=== PATIENT | female | born 1960 | race African-American/Black ===

== ENCOUNTER 2024-10-20 18:51 | Observation (INO) ==
--- NOTE | 2024-10-20 19:12 | Emergency Department Note ---
HPI - General Adult General Chief complaint: Recheck/Abnormal Lab/Rx Stated complaint: poss high blood sugar Source: patient Mode of arrival: walk-in History of Present Illness HPI narrative: The patient is 64 years old female with history of diabetes mellitus, recent stroke who presents to the ED with complaint of high blood glucose. On evaluation glucometer reads high. Patient states that she has been feeling bad and she feels so dehydrated.Patient states that she is did not get her insulin today.Denies chest pain, abdominal pain, nausea or vomiting. MD complaint: Hyperglycemia Onset (ago): hour(s) Location: Reports mouth Associated symptoms: Reports malaise and weakness Treatments prior to arrival: Reports none Related Data Allergies Allergy/AdvReac Type Severity Reaction Status Date / Time No Known Drug Allergies Allergy Verified 10/20/24 19:03 Review of Systems Status of ROS 10 or more systems reviewed and unremark able except as noted in history and below Constitutional Reports: fatigue; Denies: fever, chills, change in weight or malaise Eyes Reports: change in vision and blurry vision; Denies: blind spots, light sensitivity or eye discomfort Ears, nose, mouth, and throat Denies: throat pain, neck pain, throat swelling, difficulty swallowing, hoarseness or mouth pain Cardiovascular Denies: chest pain, palpitations, edema, swelling of feet/ankles or lightheadedness Respiratory Denies: shortness of breath, cough, wheezing, stridor, pain on inspiration or change in phlegm color Gastrointestinal Denies: abdominal pain, nausea, vomiting, coffee grounds in vomit, heartburn or diarrhea Genitourinary Denies: painful urination, urinary frequency, urinary urgency, urinary incontinence or blood in urine Musculoskeletal Denies: back pain, neck pain, extremity pain, extremity swelling, joint pain or limited range of motion Integumentary/Breast Denies: rash, itching, redness, skin pain, skin tenderness or skin swelling Neurological Denies: headache, numbness in extremities or weakness in extremities Psychiatric Denies: anxiety, mood swings, panic attacks, change in sleep pattern or hopelessness Endocrine Denies: excessive urination, excessive thirst, fatigue or cold intolerance Hematologic/Lymphatic Denies: easy bruising or easy bleeding Allergic/Immunologic Denies: hives, throat swelling, tongue swelling, facial swelling or wheezing [facility] Medical History (Updated 10/20/24 @ 19:05 by Elizabeth Sevilla RN) CVA (cerebral vascular accident) Diabetes Surgical History (Updated 10/20/24 @ 19:05 by Elizabeth Sevilla RN) History of hysterectomy History of cataract surgery Social History Smoking status: never smoker Feel stressed/tense/nervous/anxious/difficulty sleeping: not at all Due to disability, difficulty making decisions: No Exam Constitutional: normal general appearance, no apparent distress, average body habitus and no limitations Vital Signs - 24 hr 10/20/24 18:51 Temperature 98.2 F Pulse Rate 72 Respiratory Rate 18 Blood Pressure 115/72 Pulse Oximetry 95 HENMT: normocephalic, head/scalp atraumatic, hearing grossly normal bilaterally and external ears normal Eyes: PERRL, EOMs intact bilaterally, conjunctivae normal and no scleral icterus Neck/C-Spine: visual inspection normal, trachea midline and cervical spine nontender Lymph: no lymphadenopathy noted and no lymphedema noted Chest: inspection of chest normal and palpation of chest normal Respiratory: breath sounds equal bilaterally and normal respiratory effort Cardiovascular: normal heart rate noted, regular rhythm noted, no gallop and no rub Gastrointestinal: abdomen normal to inspection, abdomen soft to palpation and nontender to palpation Genitourinary: no CVA tenderness, bladder normal to palpation and external appearance normal Back/Pelvis: spine normal to inspection, no thoracic spine tenderness and no lumbar spine tenderness Extremities: normal to inspection, normal to palpation, no tenderness and full ROM 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 Blood glucose is noted to be elevated at 1200. DKA is ruled out Patient has no anion gap or ketones. I have treated the patient with 2 days normal saline with significant improvement patient has also been treated with 20 units of insulin. Blood glucose has dropped from 1231 to854. I have discussed this case with Dr. Hernandez who is agreeable for admission. Diagnosis: Hyperglycemia Acute on chronic kidney disease Hypokalemia Hypocalcemia Vital Signs Vital signs: Vital Signs Temperature 98.2 F 10/20/24 18:51 Pulse Rate 72 10/20/24 18:51 Respiratory Rate 18 10/20/24 18:51 Blood Pressure 115/72 10/20/24 18:51 Pulse Oximetry 95 10/20/24 18:51 Temperature 98.2 F 10/20/24 18:51 Pulse Rate 72 10/20/24 18:51 Respiratory Rate 18 10/20/24 18:51 Blood Pressure 115/72 10/20/24 18:51 Pulse Oximetry 95 10/20/24 18:51 Medical Decision Making Lab Data Labs: Lab Results 10/20/24 10/20/24 10/20/24 Range/Units 19:09 19:09 19:21 WBC 9.0 (4.3-9.3) K/uL RBC 4.2 (4.00-5.50) M/uL Hgb 11.7 L (12.5-15.8) gm/dL Hct 38.8 (35.9-46.7) % MCV 93.5 (81.0-93.7) fl MCH 28.1 (27.6-32.2) pg MCHC 30.1 L (33.1-35.3) g/dl RDW 14.5 H (11.4-14.2) % Plt Count 322 (152-353) K/uL MPV 9.4 (6.9-10.8) fl Gran % 59.2 (47.8-71.3) % Lymph % (Auto) 34.5 (20.0-43.0) % [place] % (Auto) 4.9 (3.6-9.8) % Eos % (Auto) 0.8 (0.4-2.8) % Baso % (Auto) 0.6 (0.1-0.85) Lymph # (Auto) 3.1 (1.1-3.1) [place] # (Auto) 0.4 L (1.1-3.1) Eos # (Auto) 0.1 (0.0-0.2) Baso # (Auto) 0.1 (0.0-0.1) Absolute Gran (auto) 5.3 (2.3-6.0) ABG pH 7.24 L* (7.35-7.45) ABG pCO2 52 H (35-45) mmHg ABG pO2 62 85 (60-100) mmHg ABG HCO3 22.3 (22-26) mmo1/L ABG Total CO2 23.9 mmo1/L ABG O2 Saturation 87 L* (92-100) % ABG Base Excess -5.4 L (-2-2) mmo1/L A-a O2 Gradient 23 mmHg Respiratory Index 0.4 (0-1) FiO2 21.0 % Sodium 115 L* (136-145) mmol/L Potassium 4.7 (3.6-5.2) mmol/L Chloride 83.0 L (98-107) mmol/L Carbon Dioxide 21 (21-32) mmol/L Anion Gap 11.0 (4-14) mEq/L BUN 46 H (7-18) mg/dL Creatinine 2.3 H (0.6-1.3) mg/dL Estimated GFR 23.5 (>59.9) Glucose 1231 H* (70-110) mg/dL Calcium 8.2 L (8.5-10.1) mg/dL Total Bilirubin 0.32 (0.0-1.0) mg/dL AST 6 L (15-37) U/L ALT 15 L (30-65) U/L Alkaline Phosphatase 308 H (50-136) U/L Total Protein 7.5 (6.4-8.2) g/dL Albumin 3.2 L (3.4-5.0) g/dL Discharge Plan Discharge Patient Disposition: Admitted As Observation Condition: Improved Chief Complaint: Recheck/Abnormal Lab/Rx Clinical Impression: Hyperglycemia, Acute kidney injury superimposed on chronic kidney disease, Hypocalcemia, Pseudohyponatremia, Hypokalemia Print Language: [place] Referrals: Adriel Rodriguez [Other] Time of Disposition: 22:20
[2024-10-20 19:38] LABS: Basophils #(Absolute) Auto 0.1 (0.0-0.1); Basophils%(Percent) Auto 0.6 (0.1-0.85); Eosinophils#(Absolute)Auto 0.1 (0.0-0.2); Eosinophils%(Percent) Auto 0.8 % (0.4-2.8); Granulocytes % - Auto 59.2 % (47.8-71.3); Granulocytes#(Absolute)- Auto 5.3 (2.3-6.0); Hematocrit 38.8 % (35.9-46.7); Mean Corpuscular Volume 93.5 fl (81.0-93.7); Monocytes #(Absolute)- Auto 0.4 (1.1-3.1); Monocytes %(Percent)- Auto 4.9 % (3.6-9.8); Platelet Count 322 K/uL (152-353)
[2024-10-20 19:47] LABS: Potassium 4.7 mmol/L (3.6-5.2)
[2024-10-20 20:08] LABS: PO2 ABG 62 mmHg (60-100)
[2024-10-20 20:14] LABS: Base Excess ABG -5.4 mmo1/L (-2-2); Oxygen Saturation ABG 87 % (92-100); PCO2 ABG 52 mmHg (35-45); pH ABG 7.24 (7.35-7.45)
[2024-10-20] MEDS ORDERED: 0.9 % SODIUM CHLORIDE 1000 ML 1,000 ML IV ONE (20:14)
[2024-10-20] MEDS: 0.9 % SODIUM CHLORIDE 1000 ML 1,000 ML IV ONE ×2 (20:22→20:56)
[2024-10-20 20:49] LABS: Urine Appearance CLEAR (CLEAR); Urine Blood NEGATIVE (NEG - TRACE); Urine Color PALE YELLOW (STRAW/YELL.); Urine Urobilinogen Normal (NORMAL)
[2024-10-20 21:46] LABS: Potassium 3.5 mmol/L (3.6-5.2)
[2024-10-20] MEDS: 0.9 % SODIUM CHLORIDE 1000 ML 1,000 ML IV SCH ×2 (22:18)
[2024-10-20] MEDS ORDERED: ACETAMINOPHEN 500 MG TABLET PO PRN (22:21)
[2024-10-20 23:14] LABS: Potassium 3.3 mmol/L (3.6-5.2)
[2024-10-21] MEDS: PREGABALIN 75 MG CAPSULE PO ONE (03:02)
[2024-10-21 03:58] VITALS: TEMP 97.9
[2024-10-21 07:12] LABS: Basophils #(Absolute) Auto 0.1 (0.0-0.1); Basophils%(Percent) Auto 0.8 (0.1-0.85); Eosinophils#(Absolute)Auto 0.4 (0.0-0.2); Eosinophils%(Percent) Auto 4.2 % (0.4-2.8); Granulocytes#(Absolute)- Auto 3.9 (2.3-6.0); Hematocrit 30.2 % (35.9-46.7); Mean Corpuscular Volume 84.7 fl (81.0-93.7); Monocytes #(Absolute)- Auto 0.5 (1.1-3.1); Platelet Count 277 K/uL (152-353); White Blood Count 9.1 K/uL (4.3-9.3)
[2024-10-21] MEDS: PANTOPRAZOLE SODIUM 40 MG VIAL IVP SCH (08:17)
[2024-10-21] MEDS: ENOXAPARIN SODIUM 40 MG/0.4 ML SYRINGE SUBQ SCH (08:17)
[2024-10-21 08:21] VITALS: BP 127/82; PULSE 91; RESP 19
--- NOTE | 2024-10-21 10:31 | Internal Medicine H&P ---
Internal Medicine - H&P: HPI History of Present Illness Chief complaint: poss high blood sugar Review of Systems Status of ROS 10 or more systems reviewed and unremark able except as noted in history and below Constitutional Denies: fever, chills, change in weight, fatigue or malaise Eyes Reports: change in vision and blurry vision; Denies: blind spots, light sensitivity or eye discomfort Ears, nose, mouth, and throat Denies: throat pain, neck pain, throat swelling, difficulty swallowing, hoarseness or mouth pain Cardiovascular Denies: chest pain, palpitations, edema, swelling of feet/ankles, lightheadedness or shortness of breath with exertion Respiratory Denies: shortness of breath, cough, wheezing, stridor, pain on inspiration or change in phlegm color Gastrointestinal Denies: abdominal pain, nausea, vomiting, coffee grounds in vomit, heartburn, diarrhea or difficulty swallowing Genitourinary Denies: painful urination, urinary frequency, urinary urgency, urinary incontinence or blood in urine Musculoskeletal Denies: back pain, neck pain, extremity pain, extremity swelling, joint pain or limited range of motion Integumentary/Breast Denies: rash, itching, redness, skin pain, skin tenderness or skin swelling Neurological Denies: headache, numbness in extremities or weakness in extremities Psychiatric Denies: anxiety, mood swings, panic attacks, change in sleep pattern or hopelessness Endocrine Denies: excessive urination, excessive thirst, fatigue or cold intolerance Hematologic/Lymphatic Denies: easy bruising or easy bleeding Allergic/Immunologic Denies: hives, throat swelling, tongue swelling, facial swelling or wheezing PFSH [facility] Medical History (Updated 10/20/24 @ 19:05 by Elizabeth Sevilla RN) CVA (cerebral vascular accident) Diabetes Surgical History (Updated 10/20/24 @ 19:05 by Elizabeth Sevilla RN) History of hysterectomy History of cataract surgery Social History Smoking status: never smoker Problems where you live: no known problems Highest level of school completed/degree received: College Feel stressed/tense/nervous/anxious/difficulty sleeping: not at all Due to disability, difficulty making decisions: No Meds Home Medications and Allergies Home Medications Medication Instructions Recorded Confirmed Type carvedilol 6.25 mg tablet 6.25 mg PO BID 10/21/24 10/21/24 History ciclopirox 0.77 % topical cream applic topical BID 10/21/24 History duloxetine 30 mg capsule,delayed 30 mg PO BEDTIME 10/21/24 10/21/24 History release empagliflozin 25 mg tablet 25 mg PO DAILY 10/21/24 10/21/24 History (Jardiance) insulin NPH-regular 70-30 U-100 See Rx Instructions subcut .COMPLEX 10/21/24 10/21/24 History insulin 100 unit/mL subcutaneous pen (Humulin 70/30 U-100 Rebekah) lorazepam 0.5 mg tablet 0.5 mg PO BID PRN anxiety 10/21/24 10/21/24 History metformin 1,000 mg tablet 1,000 mg PO BIDWM 10/21/24 10/21/24 History pregabalin 150 mg capsule (Lyrica) 150 mg PO TID 10/21/24 10/21/24 History ropinirole 1 mg tablet 1 mg PO BEDTIME 10/21/24 10/21/24 History rosuvastatin 10 mg tablet 10 mg PO DAILY 10/21/24 10/21/24 History sitagliptin phosphate 100 mg 100 mg PO DAILY 10/21/24 10/21/24 History tablet (Januvia) tramadol 50 mg tablet 50 mg PO TID 10/21/24 10/21/24 History trazodone 50 mg tablet 50 mg PO BEDTIME 10/21/24 10/21/24 History zolpidem 10 mg tablet 10 mg PO BEDTIME PRN sleep 10/21/24 10/21/24 History Allergies Allergy/AdvReac Type Severity Reaction Status Date / Time No Known Drug Allergies Allergy Verified 10/20/24 19:03 Exam Constitutional: Vital Signs - 24 hr 10/20/24 18:51 10/20/24 20:49 10/20/24 21:07 Temperature 98.2 F Pulse Rate 72 76 92 H Pulse Rate [Right Radial] Respiratory Rate 18 17 Blood Pressure 115/72 123/66 123/66 Blood Pressure [Ri ght Arm] Pulse Oximetry 95 97 93 L Oxygen Delivery Nc thod Room Air Room Air 10/20/24 21:50 10/20/24 22:22 10/20/24 22:50 Temperature 98.1 F Pulse Rate 92 H 93 H Pulse Rate [Right Radial] 95 H Respiratory Rate 18 18 19 Blood Pressure 110/65 107/71 Blood Pressure [Ri ght Arm] 100/53 Pulse Oximetry 96 97 93 L Oxygen Delivery Me thod Room Air 10/20/24 23:19 10/20/24 23:51 10/21/24 03:58 Temperature 98.1 F 98.1 F 97.9 F Pulse Rate Pulse Rate [Right Radial] 95 H 95 H 94 H Respiratory Rate 18 18 17 Blood Pressure Blood Pressure [Ri ght Arm] 100/53 100/53 105/70 Pulse Oximetry 97 97 97 Oxygen Delivery Me thod Room Air Room Air Room Air 10/21/24 08:00 Temperature 97.9 F Pulse Rate Pulse Rate [Right Radial] 91 H Respiratory Rate 19 Blood Pressure Blood Pressure [Ri ght Arm] 127/82 Pulse Oximetry 96 Oxygen Delivery Me thod Room Air Internal Medicine - H&P: Reslt Labs Labs: CBC WBC 9.1 K/uL (4.3-9.3) 10/21/24 07:00 RBC 3.6 M/uL (4.00-5.50) L 10/21/24 07:00 Hgb 10.1 gm/dL (12.5-15.8) L 10/21/24 07:00 Hct 30.2 % (35.9-46.7) L 10/21/24 07:00 MCV 84.7 fl (81.0-93.7) 10/21/24 07:00 MCH 28.3 pg (27.6-32.2) 10/21/24 07:00 MCHC 33.4 g/dl (33.1-35.3) 10/21/24 07:00 RDW 14.1 % (11.4-14.2) 10/21/24 07:00 Plt Count 277 K/uL (152-353) 10/21/24 07:00 MPV 8.2 fl (6.9-10.8) 10/21/24 07:00 Gran % 43.0 % (47.8-71.3) L 10/21/24 07:00 Lymph % (Auto) 46.0 % (20.0-43.0) H 10/21/24 07:00 [place] % (Auto) 6.0 % (3.6-9.8) 10/21/24 07:00 Eos % (Auto) 4.2 % (0.4-2.8) H 10/21/24 07:00 Baso % (Auto) 0.8 (0.1-0.85) 10/21/24 07:00 Lymph # (Auto) 4.2 (1.1-3.1) H 10/21/24 07:00 [place] # (Auto) 0.5 (1.1-3.1) L 10/21/24 07:00 Eos # (Auto) 0.4 (0.0-0.2) H 10/21/24 07:00 Baso # (Auto) 0.1 (0.0-0.1) 10/21/24 07:00 Absolute Gran (auto) 3.9 (2.3-6.0) 10/21/24 07:00 BMP Sodium 126 mmol/L (136-145) L 10/21/24 07:00 Potassium 4.0 mmol/L (3.6-5.2) 10/21/24 07:00 Chloride 99.0 mmol/L (98-107) 10/21/24 07:00 Carbon Dioxide 27 mmol/L (21-32) 10/21/24 07:00 Anion Gap 0.0 mEq/L (4-14) L 10/21/24 07:00 BUN 27 mg/dL (7-18) H 10/21/24 07:00 Creatinine 1.2 mg/dL (0.6-1.3) 10/21/24 07:00 Estimated GFR 51.2 (>59.9) 10/21/24 07:00 Glucose 179 mg/dL (70-110) H 10/21/24 07:00 Calcium 7.9 mg/dL (8.5-10.1) L 10/21/24 07:00 Total Bilirubin 0.32 mg/dL (0.0-1.0) 10/20/24 19:21 AST 6 U/L (15-37) L 10/20/24 19:21 ALT 15 U/L (30-65) L 10/20/24 19:21 Alkaline Phosphatase 308 U/L (50-136) H 10/20/24 19:21 Total Protein 7.5 g/dL (6.4-8.2) 10/20/24 19:21 Albumin 3.2 g/dL (3.4-5.0) L 10/20/24 19:21 Liver Function Total Bilirubin 0.32 mg/dL (0.0-1.0) 10/20/24 19:21 AST 6 U/L (15-37) L 10/20/24 19:21 ALT 15 U/L (30-65) L 10/20/24 19:21 Alkaline Phosphatase 308 U/L (50-136) H 10/20/24 19:21 Total Protein 7.5 g/dL (6.4-8.2) 10/20/24 19:21 Albumin 3.2 g/dL (3.4-5.0) L 10/20/24 19:21 Urine Urine Color Pale yellow (STRAW/YELL.) 10/20/24 19:50 Urine Appearance Clear (CLEAR) 10/20/24 19:50 Ur Specific [place] 1.010 (1.001-1.035) 10/20/24 19:50 Urine Protein Negative (NEGATIVE) 10/20/24 19:50 Urine Glucose (UA) 4+ (NORMAL) 10/20/24 19:50 Urine Ketones Negative (NEGATIVE) 10/20/24 19:50 Urine Occult Blood Negative (NEG - TRACE) 10/20/24 19:50 Urine Nitrite Negative (NEGATIVE) 10/20/24 19:50 Urine Bilirubin Negative (NEGATIVE) 10/20/24 19:50 Urine Urobilinogen Normal (NORMAL) 10/20/24 19:50 Ur Leukocyte Esterase Negative (NEGATIVE) 10/20/24 19:50
[2024-10-21] MEDS: 0.9 % SODIUM CHLORIDE 1000 ML 1,000 ML IV SCH (10:32)
--- NOTE | 2024-10-21 12:01 | Short Stay Summary ---
H&P: HPI History of Present Illness Chief complaint: poss high blood sugar Narrative: Admitted from home via ER due to severe hyperglycemia with mild acidosis and no ketosis or anion gap. Pt reports she left her insulin in another city after a trip. She was planning to get a refill today, but realized she was having worsening vision, fatigue, and thirst. In ER, sugar over 1000, ABG with acidosis, BMP with no AG, and no ketones in urine. Pt responded in ER to fluid bolus and 20u of regular insulin with drop to 850s. Review of Systems Status of ROS 10 or more systems reviewed and unremark able except as noted in history and below Constitutional Denies: fever, chills, change in weight, fatigue or malaise Eyes Reports: change in vision and blurry vision; Denies: blind spots, light sensitivity or eye discomfort Ears, nose, mouth, and throat Denies: throat pain, neck pain, throat swelling, difficulty swallowing, hoarseness or mouth pain Cardiovascular Denies: chest pain, palpitations, edema, swelling of feet/ankles, lightheadedness or shortness of breath with exertion Respiratory Denies: shortness of breath, cough, wheezing, stridor, pain on inspiration or change in phlegm color Gastrointestinal Denies: abdominal pain, nausea, vomiting, coffee grounds in vomit, heartburn, diarrhea or difficulty swallowing Genitourinary Denies: painful urination, urinary frequency, urinary urgency, urinary incontinence or blood in urine Musculoskeletal Denies: back pain, neck pain, extremity pain, extremity swelling, joint pain or limited range of motion Integumentary/Breast Denies: rash, itching, redness, skin pain, skin tenderness or skin swelling Neurological Denies: headache, numbness in extremities or weakness in extremities Psychiatric Denies: anxiety, mood swings, panic attacks, change in sleep pattern or hopelessness Endocrine Denies: excessive urination, excessive thirst, fatigue or cold intolerance Hematologic/Lymphatic Denies: easy bruising or easy bleeding Allergic/Immunologic Denies: hives, throat swelling, tongue swelling, facial swelling or wheezing [facility] Medical History (Updated 10/21/24 @ 12:07 by Stephon Hernandez MD) CVA (cerebral vascular accident) Diabetes Surgical History (Updated 10/20/24 @ 19:05 by Elizabeth Sevilla RN) History of hysterectomy History of cataract surgery Social History Smoking status: never smoker Problems where you live: no known problems Highest level of school completed/degree received: College Feel stressed/tense/nervous/anxious/difficulty sleeping: not at all Due to disability, difficulty making decisions: No Meds Home Medications and Allergies Home Medications Medication Instructions Recorded Confirmed Type carvedilol 6.25 mg tablet 6.25 mg PO BID 10/21/24 10/21/24 History ciclopirox 0.77 % topical cream applic topical BID 10/21/24 History duloxetine 30 mg capsule,delayed 30 mg PO BEDTIME 10/21/24 10/21/24 History release empagliflozin 25 mg tablet 25 mg PO DAILY 10/21/24 10/21/24 History (Jardiance) insulin NPH-regular 70-30 U-100 See Rx Instructions subcut .COMPLEX 10/21/24 10/21/24 History insulin 100 unit/mL subcutaneous pen (Humulin 70/30 U-100 Rebekah) lorazepam 0.5 mg tablet 0.5 mg PO BID PRN anxiety 10/21/24 10/21/24 History metformin 1,000 mg tablet 1,000 mg PO BIDWM 10/21/24 10/21/24 History pregabalin 150 mg capsule (Lyrica) 150 mg PO TID 10/21/24 10/21/24 History ropinirole 1 mg tablet 1 mg PO BEDTIME 10/21/24 10/21/24 History rosuvastatin 10 mg tablet 10 mg PO DAILY 10/21/24 10/21/24 History sitagliptin phosphate 100 mg 100 mg PO DAILY 10/21/24 10/21/24 History tablet (Januvia) tramadol 50 mg tablet 50 mg PO TID 10/21/24 10/21/24 History trazodone 50 mg tablet 50 mg PO BEDTIME 10/21/24 10/21/24 History zolpidem 10 mg tablet 10 mg PO BEDTIME PRN sleep 10/21/24 10/21/24 History Allergies Allergy/AdvReac Type Severity Reaction Status Date / Time No Known Drug Allergies Allergy Verified 10/20/24 19:03 Exam Constitutional: normal general appearance, no apparent distress, average body habitus, no limitations and alert Vital Signs - 24 hr 10/20/24 18:51 10/20/24 20:49 10/20/24 21:07 Temperature 98.2 F Pulse Rate 72 76 92 H Pulse Rate [Right Radial] Respiratory Rate 18 17 Blood Pressure 115/72 123/66 123/66 Blood Pressure [Ri ght Arm] Pulse Oximetry 95 97 93 L Oxygen Delivery Me thod Room Air Room Air 10/20/24 21:50 10/20/24 22:22 10/20/24 22:50 Temperature 98.1 F Pulse Rate 92 H 93 H Pulse Rate [Right Radial] 95 H Respiratory Rate 18 18 19 Blood Pressure 110/65 107/71 Blood Pressure [Ri ght Arm] 100/53 Pulse Oximetry 96 97 93 L Oxygen Delivery Me thod Room Air 10/20/24 23:19 10/20/24 23:51 10/21/24 03:58 Temperature 98.1 F 98.1 F 97.9 F Pulse Rate Pulse Rate [Right Radial] 95 H 95 H 94 H Respiratory Rate 18 18 17 Blood Pressure Blood Pressure [Ri ght Arm] 100/53 100/53 105/70 Pulse Oximetry 97 97 97 Oxygen Delivery Me thod Room Air Room Air Room Air 10/21/24 08:00 Temperature 97.9 F Pulse Rate Pulse Rate [Right Radial] 91 H Respiratory Rate 19 Blood Pressure Blood Pressure [Ri ght Arm] 127/82 Pulse Oximetry 96 Oxygen Delivery Me thod Room Air HENMT: normocephalic, head/scalp atraumatic and hearing grossly normal bilaterally Eyes: PERRL and EOMs intact bilaterally Neck/C-Spine: visual inspection normal and trachea midline Respiratory: breath sounds equal bilaterally, normal respiratory effort, clear to auscultation bilaterally and no wheezes Cardiovascular: normal heart rate noted, regular rhythm noted, no murmur and peripheral pulses 2+ throughout Gastrointestinal: abdomen soft to palpation, nontender to palpation, nondistended and normoactive bowel sounds Back/Pelvis: thoracic spine ROM normal and lumbar spine ROM normal Extremities: normal to inspection, normal to palpation and full ROM Neurology: household assistant II-XII intact, no focal motor deficit noted, speech normal, coordination normal, no fasciculations noted and GCS normal Psychiatry: mental status grossly normal, oriented x3, thought process normal, cooperative, affect normal, psychomotor activity normal and memory normal Skin: skin color normal and no rash Assessment and Plan Assessment and Plan (1) Severe hyperglycemia due to diabetes mellitus: Code(s): E11.65 - Type 2 diabetes mellitus with hyperglycemia (2) Chronic respiratory acidosis: Code(s): J96.12 - Chronic respiratory failure with hypercapnia (3) Acute metabolic acidosis: Code(s): E87.21 - Acute metabolic acidosis Plan Pt discharge home after aggressive hydration and insulin bolusing. Results Labs Labs: CBC WBC 9.1 K/uL (4.3-9.3) 10/21/24 07:00 RBC 3.6 M/uL (4.00-5.50) L 10/21/24 07:00 Hgb 10.1 gm/dL (12.5-15.8) L 10/21/24 07:00 Hct 30.2 % (35.9-46.7) L 10/21/24 07:00 MCV 84.7 fl (81.0-93.7) 10/21/24 07:00 MCH 28.3 pg (27.6-32.2) 10/21/24 07:00 MCHC 33.4 g/dl (33.1-35.3) 10/21/24 07:00 RDW 14.1 % (11.4-14.2) 10/21/24 07:00 Plt Count 277 K/uL (152-353) 10/21/24 07:00 MPV 8.2 fl (6.9-10.8) 10/21/24 07:00 Gran % 43.0 % (47.8-71.3) L 10/21/24 07:00 Lymph % (Auto) 46.0 % (20.0-43.0) H 10/21/24 07:00 [place] % (Auto) 6.0 % (3.6-9.8) 10/21/24 07:00 Eos % (Auto) 4.2 % (0.4-2.8) H 10/21/24 07:00 Baso % (Auto) 0.8 (0.1-0.85) 10/21/24 07:00 Lymph # (Auto) 4.2 (1.1-3.1) H 10/21/24 07:00 [place] # (Auto) 0.5 (1.1-3.1) L 10/21/24 07:00 Eos # (Auto) 0.4 (0.0-0.2) H 10/21/24 07:00 Baso # (Auto) 0.1 (0.0-0.1) 10/21/24 07:00 Absolute Gran (auto) 3.9 (2.3-6.0) 10/21/24 07:00 BMP Sodium 132 mmol/L (136-145) L 10/21/24 11:15 Potassium 5.0 mmol/L (3.6-5.2) 10/21/24 11:15 Chloride 101.0 mmol/L (98-107) 10/21/24 11:15 Carbon Dioxide 27 mmol/L (21-32) 10/21/24 11:15 Anion Gap 4.0 mEq/L (4-14) 10/21/24 11:15 BUN 22 mg/dL (7-18) H 10/21/24 11:15 Creatinine 1.1 mg/dL (0.6-1.3) 10/21/24 11:15 Estimated GFR 56.8 (>59.9) 10/21/24 11:15 Glucose 293 mg/dL (70-110) H 10/21/24 11:15 Calcium 8.2 mg/dL (8.5-10.1) L 10/21/24 11:15 Total Bilirubin 0.32 mg/dL (0.0-1.0) 10/20/24 19:21 AST 6 U/L (15-37) L 10/20/24 19:21 ALT 15 U/L (30-65) L 10/20/24 19:21 Alkaline Phosphatase 308 U/L (50-136) H 10/20/24 19:21 Total Protein 7.5 g/dL (6.4-8.2) 10/20/24 19:21 Albumin 3.2 g/dL (3.4-5.0) L 10/20/24 19:21 Liver Function Total Bilirubin 0.32 mg/dL (0.0-1.0) 10/20/24 19:21 AST 6 U/L (15-37) L 10/20/24 19:21 ALT 15 U/L (30-65) L 10/20/24 19:21 Alkaline Phosphatase 308 U/L (50-136) H 10/20/24 19:21 Total Protein 7.5 g/dL (6.4-8.2) 10/20/24 19:21 Albumin 3.2 g/dL (3.4-5.0) L 10/20/24 19:21 Urine Urine Color Pale yellow (STRAW/YELL.) 10/20/24 19:50 Urine Appearance Clear (CLEAR) 10/20/24 19:50 Ur Specific [place] 1.010 (1.001-1.035) 10/20/24 19:50 Urine Protein Negative (NEGATIVE) 10/20/24 19:50 Urine Glucose (UA) 4+ (NORMAL) 10/20/24 19:50 Urine Ketones Negative (NEGATIVE) 10/20/24 19:50 Urine Occult Blood Negative (NEG - TRACE) 10/20/24 19:50 Urine Nitrite Negative (NEGATIVE) 10/20/24 19:50 Urine Bilirubin Negative (NEGATIVE) 10/20/24 19:50 Urine Urobilinogen Normal (NORMAL) 10/20/24 19:50 Ur Leukocyte Esterase Negative (NEGATIVE) 10/20/24 19:50 ABG ABG results: 10/20/24 19:09 ABG pH 7.24 L* ABG pCO2 52 H ABG pO2 85 ABG HCO3 22.3 ABG Total CO2 23.9 ABG O2 Saturation 87 L* ABG Base Excess -5.4 L Attestation: I personally reviewed and interpreted this ABG as follows: (Chronic respiratory acidosis with acute metabolic acidosis) DS: Providers Provider Date of admission: 10/20/24 22:21 Primary care physician: Adriel Rodriguez Admitting clinician: Aliza Thomas Attending physician on admission: Stephon Hernandez Attending physician on discharge: Stephon Hernandez Discharging clinician: Stephon Hernandez Anticipated date of discharge: 10/21/24 DS: Summary Hospital Course Hospital Course: Pt responded well to q4hr BMPs with insulin boluses and 200cc/hr NS IVFs. At time of discharge, sugar consistently under 200 and sodium over 130. Pt reports resolution of symptoms and availability of insulin at pharmacy. Status at Discharge Functional status at discharge: independent ambulation Overall status at discharge: patient is progressing back to baseline Time Spent with Patient Time attestation: Total time spent providing and/or coordinating discharge services: Time spent: less than 30 minutes Discharge Plan Discharge Disposition: Home, Self-Care Condition: Improved Discharge Medications: Continued ciclopirox 0.77 % cream TOPICAL BID Patient Comments: APPLY 1 APPLICATION TOPICALLY TO THE AFFECTED AREA TWICE A DAY duloxetine 30 mg capsule,delayed release(DR/EC) 30 mg PO BEDTIME Patient Comments: TAKE 1 CAPSULE BY MOUTH AT BEDTIME lorazepam 0.5 mg tablet 0.5 mg PO BID PRN (Reason: anxiety) Patient Comments: TAKE 1 TABLET BY MOUTH TWICE DAILY NEEDED FOR ANXIETY metformin 1,000 mg tablet 1,000 mg PO BIDWM Patient Comments: TAKE 1 TABLET BY MOUTH TWICE DAILY WITH A MEAL Rx Instructions: LAST FILLED IN April, NOT BE COMPLIANT pregabalin [Lyrica] 150 mg capsule 150 mg PO TID Patient Comments: TAKE 1 CAPSULE BY MOUTH THREE TIMES DAILY FOR 90 DAYS trazodone 50 mg tablet 50 mg PO BEDTIME Patient Comments: TAKE 1 TABLET BY MOUTH ONCE DAILY AT BEDTIME Januvia 100 mg tablet 100 mg PO DAILY Patient Comments: TAKE 1 TABLET BY MOUTH ONCE DAILY Jardiance 25 mg tablet 25 mg PO DAILY Patient Comments: TAKE 1 TABLET BY MOUTH ONCE A DAY Rx Instructions: LAST FILLED IN April, NOT BE COMPLIANT tramadol 50 mg tablet 50 mg PO TID Patient Comments: TAKE 1 TABLET BY MOUTH THREE TIMES DAILY zolpidem 10 mg tablet 10 mg PO BEDTIME PRN (Reason: sleep) Patient Comments: TAKE 1 TABLET BY MOUTH EVERY DAY AT BEDTIME NEEDED ropinirole 1 mg tablet 1 mg PO BEDTIME Patient Comments: TAKE 1 TABLET BY MOUTH ONCE A DAY 1 TO 3 HOURS BEFORE BEDTIME carvedilol 6.25 mg tablet 6.25 mg PO BID Patient Comments: TAKE 1 TABLET BY MOUTH TWICE A DAY WITH FOOD Rx Instructions: LAST FILLED IN April, NOT BE COMPLIANT Humulin 70/30 U-100 KwikPen 100 unit/mL (70-30) insulin pen See Rx Instructions SUBCUT .COMPLEX Rx Instructions: 60 UNITS WITH BREAKFAST AND 40 WITH SUPPER subcutaneously; rosuvastatin 10 mg tablet 10 mg PO DAILY Patient Comments: TAKE 1 TABLET BY MOUTH ONCE DAILY Rx Instructions: LAST FILLED IN July, NOT BE COMPLIANT Discharge Orders: Discharge Order (Routine); Ordered 10/21/24 Ordered By: Stephon Hernandez Activity: increase activity as tolerated Diet: diabetic diet Interventions: MED/SURG & ICU Observation Charge Sheet Last Done: 10/21/24 06:02 Forms: Portal/Health Info Access Inst Follow-Ups: Adriel Rodriguez [Other]
== END 2024-10-21 12:32 | disposition home or self-care (01) ==
LOC: ED 18:51 → MS 18:51
PROVIDERS: ADMIT Physician Assistant; ATTEND Family Medicine